=== PATIENT | male | born 1990 | race Caucasian/White ===

== ENCOUNTER 2020-11-14 06:04 | Emergency (ER) | payer MEDICAID ==
[~2020-11-14] VITALS: Ht 172.7 cm; Wt 83.9 kg
--- NOTE | 2020-11-14 06:20 | NUR ---
ED Nurse Note: Patient came in through ambulatory triage complaints of being in possible DKA, hx of diabetes type 1 havent been able to obtain needles to take insulin
--- NOTE | 2020-11-14 06:22 | NUR ---
ED Nurse Note: Accucheck shows >500, EDMD aware
--- NOTE | 2020-11-14 06:30 | NUR ---
ED Nurse Note: Blood specimens collected and sent to lab
--- NOTE | 2020-11-14 06:32 | Emergency Room Report ---
History of Present Illness General Chief Complaint: Abnormal Labs Source: Patient Present Illness HPI Patient presents asking for "needles". He states that he has not taken his insulin for 2 to 3 days. Has history of diabetic ketoacidosis in the past. He has polyuria and polydipsia. He is also complaining about abdominal cramping. He has some intermittent vomiting but has kept down water recently. He denies any fevers or chills. He denies productive cough. The patient lives by himself. He denies exposure to Covid positive contacts. No sore throat, chest pain, palpitations, diarrhea, dysuria, shortness of breath, joint pain, rashes, headache. Allergies: Coded Allergies: AMOXICILLIN (Unverified Allergy, Unknown, 11/14/20) COVID-19 Screening Contact w/high risk pt: No Experienced COVID-19 symptoms?: No COVID-19 Testing performed [employer]SM[employer]DER: No Patient History Past Medical History: see triage record Social History: Reports: smoking, alcohol use, drug use - [facility] Social History Narrative lives by himself Reviewed Nursing Documentation: PMH: Agreed; PSxH: Agreed Nursing Documentation-PMH Past Medical History: No History, Except For Hx Diabetes: Yes Review of Systems All Other Systems: negative except mentioned in HPI Physical Exam Vital Signs Date Time Temp Pulse Resp B/P (MAP) Pulse Ox O2 Delivery O2 Flow Rate FiO2 11/14/20 06:07 97.9 120 18 109/60 (76) 100 Room Air Sp02 EP Interpretation: reviewed, normal General Appearance: mild distress Head: normocephalic Eyes: bilateral eye normal inspection, bilateral eye PERRL, bilateral eye EOMI ENT: moist mucus membranes Neck: supple Respiratory: lungs clear, normal breath sounds Cardiovascular #1: no edema, tachycardia Cardiovascular #2: 2+ radial (R) Gastrointestinal: normal inspection, non tender, no mass, non-distended, decreased bowel sounds Musculoskeletal: back normal, normal range of motion, gait/station normal Neurologic: alert, oriented x3, grossly normal Psychiatric: anxious Skin: no rash, warm/dry Procedures Critical Care Time Critical Care Time Total Critical Care Time: 35 min bedside evaluation and treatment excludes procedures (EKG). Reason for critical care: Hyperglycemia, dehydration, repeat evaluations, diabetic ketoacidosis Possible complications: hypotension, hypertension, MT, shock, arrhythmias, meta bolic acidosis, end organ damage, respiratory failure. Interventions: Fluid resuscitation, IV insulin boluses, repeat evaluations, discussion of leaving AGAINST MEDICAL ADVICE, discussion with [facility] physician Course: Patient presents with request for needles. Elevated blood sugar. Immediate fluid resuscitation begun. IV administration of insulin when blood sugar returns critically high. Repeat blood glucose somewhat improved and insulin repeated. Repeat evaluation and discussion with patient who is reluctant for continuing care. Patient agrees to further IV hydration and treatment. Repeat blood glucose improved. Discussed risk of with patient and the need for hospitalization. Discussion with [facility] physician. Consultations: nursing staff, EMS, [facility] physician Performed by: Dr. Muro Tolerated well condition = serious Medical Decision Making Diagnostic Impression: Primary Impression: Diabetic keto-acidosis Qualified Codes: E10.10 - Type 1 diabetes mellitus with ketoacidosis without coma Additional Impression: Left against medical advice ER Course Diabetic presents with tachycardia and lack of use of insulin. Differential includes diabetic ketoacidosis, hyperosmolar state, other electrolyte imbalance including hypokalemia, occult infection amongst others. Accu-Chek is high at this time. Patient be treated initially with saline bolus and lactated Ringer's IV infusion. Plan to give insulin if Accu-Chek after liter bolus is still high. Patient evaluated with EKG, chest x-ray, venous blood gas and other labs. Patient placed on a court monitor. The patient needs to be admitted to the hospital. He states that he does not plan to stay. He feels that he needs some help initially but is going to refuse hospitalization. We will have to reevaluate after treatment has begun. EKG ST. Glucose 899. Insulin 15 units IV ordered. 655 pH 7.36 Glucose = 575. Insulin 10 units bolus. LR bolus. Patient states he wants to go. Agreed to another liter. 800 Glucose = 288. Discussed with Dr. Sarkis Tomas. Discussed with patient who refuses to stay and insists on leaving AMA. Told of risk of . Patient requesting that we dispense syringes and needles. I told him to go to the [facility]. 915 Discussed with [facility] physician Dr. Dockery. He will contact the patient's primary physician and try to arrange for follow-up. Laboratory Tests Test 11/14/20 06:25 11/14/20 06:33 White Blood Count 10.2 K/UL (4.8-10.8) Red Blood Count 5.36 M/UL (4.70-6.10) Hemoglobin 15.7 G/DL (14.2-18.0) Hematocrit 49.7 % (42.0-52.0) Mean Corpuscular Volume 93 FL (80-99) Mean Corpuscular Hemoglobin 29.2 PG (27.0-31.0) Mean Corpuscular Hemoglobin Concent 31.5 G/DL (32.0-36.0) L Red Cell Distribution Width 12.1 % (11.6-14.8) Platelet Count 308 K/UL (150-450) Mean Platelet Volume 7.0 FL (6.5-10.1) Neutrophils (%) (Auto) 79.8 % (45.0-75.0) H Lymphocytes (%) (Auto) 11.1 % (20.0-45.0) L Monocytes (%) (Auto) 6.7 % (1.0-10.0) Eosinophils (%) (Auto) 1.4 % (0.0-3.0) Basophils (%) (Auto) 1.1 % (0.0-2.0) Sodium Level 125 MMOL/L (136-145) L Potassium Level 4.8 MMOL/L (3.5-5.1) Chloride Level 88 MMOL/L (98-107) L Carbon Dioxide Level 21 MMOL/L (21-32) Anion Gap 16 mmol/L (5-15) H Blood Urea Nitrogen 28 mg/dL (7-18) H Creatinine 1.7 MG/DL (0.55-1.30) H Estimated Glomerular Filtration Rate 48.2 mL/min (>60) Glucose Level 899 MG/DL (74-106) *H Calcium Level 9.6 MG/DL (8.5-10.1) Magnesium Level 1.7 MG/DL (1.8-2.4) L Total Bilirubin 3.2 MG/DL (0.2-1.0) H Direct Bilirubin 0.5 MG/DL (0.0-0.3) H Aspartate Amino Transferase (AST) 18 U/L (15-37) Alanine Aminotransferase (ALT) 26 U/L (12-78) Alkaline Phosphatase 123 U/L (46-116) H Troponin I 0.000 ng/mL (0.000-0.056) Total Protein 7.4 G/DL (6.4-8.2) Albumin 4.0 G/DL (3.4-5.0) Globulin 3.4 g/dL Albumin/Globulin Ratio 1.2 (1.0-2.7) Lipase 72 U/L (73-393) L Acetone Level Positive-small (NEGATIVE) Venous Blood pH 7.362 Venous Blood Partial Pressure CO2 33.5 Venous Blood Partial Pressure O2 52.9 Venous Blood HCO3 18.6 Venous Blood Base Excess -5.7 Venous Blood Carboxyhemoglobin 1.8 % (0.5-1.5) H Methemoglobin 0.4 EKG Diagnostic Results Rate: tachycardiac Rhythm: NSR ST Segments: no acute changes Rhythm Strip Diag. Results Rhythm: no PVC's, no ectopy, other - Sinus tachycardia Last Vital Signs Date Time Temp Pulse Resp B/P (MAP) Pulse Ox O2 Delivery O2 Flow Rate FiO2 11/14/20 09:15 97.9 114 30 137/85 100 Room Air Status: improved Disposition: AGAINST MEDICAL ADVICE Condition: Improved Andrew Muro MD Nov 14, 2020 06:32
[2020-11-14] MEDS: LR 1000ml 1,000 ML IV SCH ×2 (06:33→07:34)
--- NOTE | 2020-11-14 06:36 | NUR ---
ED Nurse Note: RT collected venous blood gas
[2020-11-14 06:42] VITALS: BP 130/61
[2020-11-14 06:48] LABS: BASOPHILS % (AUTO) 1.1 % (0.0-2.0); EOSINOPHILS % (AUTO) 1.4 % (0.0-3.0); HEMATOCRIT 49.7 % (42.0-52.0); HEMOGLOBIN 15.7 G/DL (14.2-18.0); LYMPHOCYTES % (AUTO) 11.1 % (20.0-45.0); MEAN CORPUSCULAR VOLUME 93 FL (80-99); MONOCYTES % (AUTO) 6.7 % (1.0-10.0); NEUTROPHILS % (AUTO) 79.8 % (45.0-75.0); PLATELET COUNT 308 K/UL (150-450); RED BLOOD COUNT 5.36 M/UL (4.70-6.10); RED CELL DISTRIBUTION WIDTH 12.1 % (11.6-14.8); WHITE BLOOD COUNT 10.2 K/UL (4.8-10.8)
[2020-11-14 06:53] LABS: ANION GAP 16 mmol/L (5-15); BLOOD UREA NITROGEN 28 mg/dL (7-18); CALCIUM 9.6 MG/DL (8.5-10.1); CARBON DIOXIDE 21 MMOL/L (21-32); CHLORIDE 88 MMOL/L (98-107); CREATININE 1.7 MG/DL (0.55-1.30); POTASSIUM 4.8 MMOL/L (3.5-5.1); SODIUM 125 MMOL/L (136-145)
[2020-11-14 07:00] LABS: ALANINE AMINOTRANSFERASE 26 U/L (12-78); ALBUMIN/GLOBULIN RATIO 1.2 (1.0-2.7); ALKALINE PHOSPHATASE 123 U/L (46-116); ASPARTATE AMINO TRANSFERASE 18 U/L (15-37); BILIRUBIN,TOTAL 3.2 MG/DL (0.2-1.0)
[2020-11-14] MEDS ORDERED: Insulin Human Regular 100units/ml 3ml IV ONE ×2 (07:00→08:15)
[2020-11-14 07:06] LABS: BILIRUBIN,DIRECT 0.5 MG/DL (0.0-0.3)
[2020-11-14] MEDS ORDERED: LR 1000ml 1,000 ML IVLG ONE (07:45)
[2020-11-14] MEDS ORDERED: Insulin Human Regular 100units/ml 3ml ONE (07:57)
[2020-11-14 08:02] VITALS: BP 137/85
--- NOTE | 2020-11-14 08:03 | NUR ---
Patient resting comfortably. Easily aroused. Tachycardic at present. AAOX4. BS- 597- 10 units given as per MD order Tolerated well
[2020-11-14 09:15] VITALS: BP 137/85
--- NOTE | 2020-11-16 10:46 | Cardiology Report ---
APPROVED REPORT EKG Measurement Heart [id number] <Conclusion> Sinus tachycardia Otherwise normal ECG
== END 2020-11-14 09:15 | disposition left against medical advice (07) ==
LOC: EMR 06:47 → CANBEDREQ 09:33
DX: E10.10 Type 1 diabetes mellitus with ketoacidosis without coma (principal); Z53.29 Procedure and treatment not carried out because of patient's decision for other reasons; F17.200 Nicotine dependence, unspecified, uncomplicated; F10.10 Alcohol abuse, uncomplicated; F12.90 Cannabis use, unspecified, uncomplicated; Z88.1 Allergy status to other antibiotic agents; Z79.4 Long term (current) use of insulin
CPT/HCPCS: 36415; 80053; 82009; 82248; 82803; 82962; 83690; 83735; 84484; 85025; 93005; 96361; 96374; 96376; J1815; J7120; Z7502; 99291